=== PATIENT | male | born 1950 | race African-American/Black ===

== ENCOUNTER 2022-01-06 10:41 | Observation (INO) ==
[2022-01-06] MEDS ORDERED: ONDANSETRON 4 MG/2 ML VIAL IM STA (11:47)
[2022-01-06] MEDS ORDERED: MORPHINE 2 MG/1 ML SYRINGE IM STA (11:47)
[2022-01-06 12:40] LABS: Protein,Urine 100 mg/dL (Negative); Urine Appearance Clear (Clear); Urine Color Yellow (Yellow); Urine Specific Gravity >= 1.030 (1.001-1.035); Urine pH 5.5 (4.5-8.0)
[2022-01-06 12:41] LABS: Basophils # 0.1 10*3/uL (0.0-0.2); Basophils % 0.6 % (0.0-0.8); Bilirubin,Urine Negative (Negative); Blood, Urine Negative (Negative); Eosinophils # 0.1 10*3/uL (0.0-0.87); Eosinophils % 1.4 % (0.00-10.9); Glucose,Urine (UA) Negative (Negative); Hemoglobin 13.3 GM/DL (14.0-18.0); Immature Granulocytes % 0.4 %; Immature Granulocytes Absolute 0.03 #; Ketones,Urine Negative (Negative); Lymphocytes % 25.5 % (21.2-54.2); Mean Corpuscular HGB Conc 31.7 GM/DL (32-36); Mean Corpuscular Volume 93.1 FL (87-102); Mean Platelet Volume 9.7 FL (9.6-12.0); Monocytes # 0.6 10*3/uL (0.11-0.8); Monocytes % 7.9 % (1.7-12.7); Neutrophils % 64.2 % (38.7-73.9); Nitrite,Urine Negative (Negative); Platelet Count 228 T/CUMM (130-400); Red Blood Count 4.51 MC/CUMM (3.8-5.5); Red Cell Distribution Width 13.7 % (9.3-17.3); White Blood Count 7.8 T/CUMM (4-12)
[2022-01-06 13:01] LABS: Albumin 3.9 G/DL (3.4-5.0); Bilirubin,Total 0.5 MG/DL (0.20-1.00); Calcium 9.5 MG/DL (8.5-10.1); Osmolality,Calculated 282.7 MOS/KG (273-304); Potassium 4.5 MMOL/L (3.5-5.1); Total Protein 7.7 G/DL (6.4-8.2)
[2022-01-06 13:04] LABS: Bacteria,Urine 1+ /HPF (Few); Mucus,Urine Few /LPF (Occasional); Squamous Epithelial Cell,Urine 2+ /HPF (0-10)
[2022-01-06] MEDS ORDERED: hydrALAZINE 20 MG/1 ML VIAL IV STA (13:39)
[2022-01-06] MEDS ORDERED: hydrALAZINE 20 MG/1 ML VIAL IV PRN (14:50)
[2022-01-06] MEDS ORDERED: DEXTROSE 50% 25 GM/50 ML VIAL IV PRN (14:50)
[2022-01-06] MEDS ORDERED: DOCUSATE SODIUM 100 MG CAPSULE PO PRN (14:50)
[2022-01-06] MEDS ORDERED: ONDANSETRON 4 MG/2 ML VIAL IV PRN (14:50)
[2022-01-06] MEDS ORDERED: NICOTINE 21 MG/24 HR PATCH TRANSDERM PRN (14:50)
[2022-01-06] MEDS ORDERED: GLUCAGON 1 MG VIAL IM PRN (14:50)
[2022-01-06] MEDS ORDERED: INSULIN LISPRO 100 UNIT/ML SUBCUT PRN (15:02)
[2022-01-06] MEDS ORDERED: FUROSEMIDE 20 MG TABLET PO ONE (15:12)
[2022-01-06] MEDS ORDERED: DEXTROSE 10% 250 ML BAG IV PRN (15:28)
[2022-01-06] MEDS: PANTOPRAZOLE 40 MG TABLET PO SCH (16:49)
[2022-01-06] MEDS: ACETAMINOPHEN 325 MG TABLET PO PRN (18:34)
[2022-01-06] MEDS: INSULIN NPH/REGULAR 70/30 100 UNIT/ML SUBCUT SCH (18:35)
[2022-01-06 18:52] LABS: Thyroid Stimulating Hormone 1.49 uIU/ml (0.358-3.74)
[2022-01-06] MEDS ORDERED: metFORMIN 500 MG TABLET PO SCH (21:00)
[2022-01-06] MEDS: SIMVASTATIN 10 MG TABLET PO SCH (21:45)
[2022-01-07] MEDS: ACETAMINOPHEN 325 MG TABLET PO PRN ×3 (04:25→14:59)
[2022-01-07 06:48] LABS: Basophils # 0.1 10*3/uL (0.0-0.2); Basophils % 0.7 % (0.0-0.8); Eosinophils # 0.1 10*3/uL (0.0-0.87); Eosinophils % 1.4 % (0.00-10.9); Hematocrit 42.7 VOL% (42.0-52.0); Hemoglobin 13.6 GM/DL (14.0-18.0); Immature Granulocytes % 0.5 %; Immature Granulocytes Absolute 0.04 #; Lymphocytes # 1.6 10*3/uL (1.4-4.0); Lymphocytes % 21.4 % (21.2-54.2); Mean Corpuscular HGB Conc 31.9 GM/DL (32-36); Mean Corpuscular Volume 94.3 FL (87-102); Monocytes # 0.7 10*3/uL (0.11-0.8); Monocytes % 9.3 % (1.7-12.7); Neutrophils % 66.7 % (38.7-73.9); Platelet Count 225 T/CUMM (130-400); Red Blood Count 4.53 MC/CUMM (3.8-5.5); Red Cell Distribution Width 13.8 % (9.3-17.3); White Blood Count 7.6 T/CUMM (4-12)
[2022-01-07 07:20] LABS: Albumin 3.3 G/DL (3.4-5.0); Bilirubin,Total 0.5 MG/DL (0.20-1.00); Calcium 9.4 MG/DL (8.5-10.1); Osmolality,Calculated 284.5 MOS/KG (273-304); Potassium 4.8 MMOL/L (3.5-5.1); Risk Ratio 2.69; Total Protein 6.7 G/DL (6.4-8.2)
[2022-01-07] MEDS ORDERED: hydrALAZINE 25 MG TABLET PO SCH (09:00)
[2022-01-07] MEDS ORDERED: amLODIPine 5 MG TABLET PO SCH (09:00)
[2022-01-07] MEDS: INSULIN NPH/REGULAR 70/30 100 UNIT/ML SUBCUT SCH ×2 (10:12→21:02)
[2022-01-07] MEDS: VALSARTAN 160 MG TABLET PO SCH (10:12)
[2022-01-07] MEDS: FUROSEMIDE 20 MG TABLET PO SCH (10:12)
[2022-01-07] MEDS: PANTOPRAZOLE 40 MG TABLET PO SCH (10:13)
[2022-01-07] MEDS ORDERED: amLODIPine 5 MG TABLET PO ONE (10:37)
[2022-01-07] MEDS ORDERED: ENOXAPARIN 40 MG/0.4 ML SYRINGE SUBCUT SCH (15:00)
[2022-01-07] MEDS: hydrALAZINE 25 MG TABLET PO SCH ×2 (15:00→21:02)
[2022-01-07] MEDS ORDERED: MORPHINE 2 MG/1 ML SYRINGE IM ONE (16:05)
[2022-01-07] MEDS: SIMVASTATIN 10 MG TABLET PO SCH (21:02)
[2022-01-08 05:24] VITALS: BP 170/98
[2022-01-08 05:38] LABS: Basophils % 0.4 % (0.0-0.8); Eosinophils # 0.1 10*3/uL (0.0-0.87); Eosinophils % 1.5 % (0.00-10.9); Hematocrit 40.9 VOL% (42.0-52.0); Hemoglobin 13.2 GM/DL (14.0-18.0); Immature Granulocytes % 0.3 %; Immature Granulocytes Absolute 0.02 #; Lymphocytes # 2.2 10*3/uL (1.4-4.0); Lymphocytes % 29.5 % (21.2-54.2); Mean Corpuscular HGB Conc 32.3 GM/DL (32-36); Mean Corpuscular Volume 92.1 FL (87-102); Mean Platelet Volume 9.7 FL (9.6-12.0); Monocytes # 0.7 10*3/uL (0.11-0.8); Monocytes % 9.1 % (1.7-12.7); Neutrophils % 59.2 % (38.7-73.9); Platelet Count 233 T/CUMM (130-400); Red Blood Count 4.44 MC/CUMM (3.8-5.5); Red Cell Distribution Width 13.5 % (9.3-17.3); White Blood Count 7.4 T/CUMM (4-12)
[2022-01-08 05:58] LABS: Calcium 9.1 MG/DL (8.5-10.1); Osmolality,Calculated 280.7 MOS/KG (273-304); Potassium 4.4 MMOL/L (3.5-5.1)
[2022-01-08] MEDS: VALSARTAN 160 MG TABLET PO SCH (09:48)
[2022-01-08] MEDS: PANTOPRAZOLE 40 MG TABLET PO SCH (09:48)
[2022-01-08] MEDS: FUROSEMIDE 20 MG TABLET PO SCH (09:48)
[2022-01-08] MEDS: INSULIN NPH/REGULAR 70/30 100 UNIT/ML SUBCUT SCH (09:49)
== END 2022-01-08 11:52 | disposition home health service (06) ==
LOC: N.ED 10:41 → N.EDINP 10:41 → SUATTDRO 16:18 → N.EDINP 17:26 → N.TELES 17:41
PROVIDERS: ADMIT Family Medicine; ATTEND Family Medicine